=== PATIENT | female | born 1945 | race Caucasian/White ===

== ENCOUNTER 2020-10-16 13:42 | Inpatient (IN) | payer MEDICARE, OTHER ==
[~2020-10-16] VITALS: Ht 160 cm; Wt 126.6 kg
[2020-10-16 20:11] LABS: HEMOGLOBIN 9.1 gm/dl (12.3-15.3); RED BLOOD COUNT 3.21 M/UL (4.00-5.10); WHITE BLOOD COUNT 5.4 K/UL (4.5-11.0)
[2020-10-16] MEDS ORDERED: CLONIDINE HCL0.1 MG PO (21:56)
[2020-10-16] MEDS ORDERED: CYANOCOBAL1000 MCG/1 INJ (22:03)
[2020-10-16] MEDS ORDERED: OXYCODON-ACETA1 EAC1 PO (22:04)
[2020-10-16] MEDS ORDERED: CETIRIZINE HCL10 MG PO (22:05)
[2020-10-16] MEDS ORDERED: TIZANIDINE HCL4 MG PO (22:05)
[2020-10-16] MEDS ORDERED: ATENOLOL25 MG PO (22:06)
[2020-10-16] MEDS ORDERED: DALIRESP500 MCG PO (22:07)
[2020-10-16] MEDS ORDERED: LEVOTHYROXINE137 MCG PO (22:07)
[2020-10-16] MEDS ORDERED: TAMSULOSIN HCL0.4 MG PO (22:08)
[2020-10-16] MEDS ORDERED: MONTELUKAST SOD10 MG PO (22:09)
[2020-10-16] MEDS ORDERED: NOVOLOG FL100 UNIT/1 INJ (22:10)
[2020-10-16] MEDS ORDERED: TRESIBA FL100 UNIT/1 SQ (22:13)
[2020-10-16] MEDS ORDERED: PANTOPRAZOLE SO20 MG PO (22:15)
[2020-10-16] MEDS ORDERED: PULMICORT1 MG/2 ML INH (22:15)
[2020-10-16] MEDS ORDERED: GABAPENTIN600 MG PO (22:16)
[2020-10-16] MEDS ORDERED: ZYLOPRIM 100 M100 MG PO (22:16)
[2020-10-16] MEDS ORDERED: FUROSEMIDE40 MG PO (22:19)
[2020-10-17 04:56] LABS: HEMOGLOBIN 9.2 gm/dl (12.3-15.3); RED BLOOD COUNT 3.27 M/UL (4.00-5.10); WHITE BLOOD COUNT 5.8 K/UL (4.5-11.0)
[2020-10-17] MEDS ORDERED: FUROSEMIDE10 MG/1 M1 IVP (10:59)
--- NOTE | 2020-10-17 22:26 | NUR ---
1929 CALLED EMS REQUESTING AMBULANCE FOR TRANSFER TO [facility]. 2214 EMS AT BEDSIDE. REPORT GIVEN, ALL QUESTIONS ANSWERED. 2229 CALLED TO UPDATE NURSE AT [facility].
== END 2020-10-17 22:15 | disposition short-term general hospital (02) | DRG 193 ==
LOC: CCU 13:42
PROVIDERS: Internal Medicine; Physician Assistant Medical; ADMIT Internal Medicine
PROC: B24BZZ4 Ultrasonography of Heart with Aorta, Transesophageal (ICD-10-PCS; principal; 2020-10-17)
DX: J18.9 Pneumonia, unspecified organism (principal); J96.21 Acute and chronic respiratory failure with hypoxia; J96.22 Acute and chronic respiratory failure with hypercapnia; J98.19 Other pulmonary collapse; I13.0 Hypertensive heart and chronic kidney disease with heart failure and stage 1 through stage 4 chronic kidney disease, or unspecified chronic kidney disease; J44.0 Chronic obstructive pulmonary disease with (acute) lower respiratory infection; I48.20 Chronic atrial fibrillation, unspecified; E66.2 Morbid (severe) obesity with alveolar hypoventilation; N30.00 Acute cystitis without hematuria; I48.92 Unspecified atrial flutter; Z66 Do not resuscitate; I07.1 Rheumatic tricuspid insufficiency; I27.20 Pulmonary hypertension, unspecified; I50.9 Heart failure, unspecified; N18.9 Chronic kidney disease, unspecified; E11.22 Type 2 diabetes mellitus with diabetic chronic kidney disease; D69.6 Thrombocytopenia, unspecified; I89.0 Lymphedema, not elsewhere classified; D50.9 Iron deficiency anemia, unspecified; J84.10 Pulmonary fibrosis, unspecified; K21.9 Gastro-esophageal reflux disease without esophagitis; E11.40 Type 2 diabetes mellitus with diabetic neuropathy, unspecified; E03.9 Hypothyroidism, unspecified; D63.1 Anemia in chronic kidney disease; I27.81 Cor pulmonale (chronic); Z79.01 Long term (current) use of anticoagulants; Z79.4 Long term (current) use of insulin; Z86.718 Personal history of other venous thrombosis and embolism; Z87.01 Personal history of pneumonia (recurrent); Z98.42 Cataract extraction status, left eye; Z98.41 Cataract extraction status, right eye; Z90.49 Acquired absence of other specified parts of digestive tract; Z88.1 Allergy status to other antibiotic agents; Z88.2 Allergy status to sulfonamides; Z88.8 Allergy status to other drugs, medicaments and biological substances; Z79.82 Long term (current) use of aspirin; Z79.899 Other long term (current) drug therapy; Z83.6 Family history of other diseases of the respiratory system
CPT/HCPCS: ECHO; 36415; 71045; 80048; 82550; 82553; 82962; 83735; 83880; 84484; 85025; 85027; 87040; 93005; 93306; 94660; 94760; J0696; J1650; J1940; J2020; J2185; J7050; U0002